=== PATIENT | female | born 1940 | race Caucasian/White ===

== ENCOUNTER 2017-04-10 19:19 | Emergency (ER) | payer OTHER, BC ==
--- NOTE | 2017-04-10 19:21 | PDOC ---
History of Present Illness - History of Present Illness Initial Comments: 04/10/17 19:34 The patient is a 76 year old female, with no significant past medical history, who presents to the ED for evaluation of a laceration sustained to her left thumb when she "picked up a knife wrong" while washing dishes this evening. The patient denies any other complaints. PAST MEDICAL HISTORY: no significant history PAST SURGICAL HISTORY: no significant history FAMILY HISTORY: no pertinent history SOCIAL HISTORY: Pt lives with family. MEDICATIONS: reviewed ALLERGIES: As per nursing notes Adult ROS General: No fevers or chills, no weakness, no weight loss HEENT: No change in vision. No sore throat,. No ear pain CardioVascular: No chest pain or shortness of breath Respiratory:No cough, or wheezing. Gastrointestinal: no nausea, vomiting, diarrhea or constipation, No rectal bleeding Genitourinary: No dysuria, hematuria, or frequency Musculoskeletal: No joint or muscle pain or swelling Neurologic: No headache, vertigo, dizziness or loss of consciousness Psychiatric: nor depression Skin: (+) left thumb laceration. No rashes or easy bruising Endocrine: no increased thirst or abnormal weight change Allergic: no skin or latex allergy All other systems reviewed and normal Physical Exam GENERAL: The patient is awake, alert, and fully oriented, in no acute distress. HEAD: Normal with no signs of trauma. EYES: Pupils equal, round and reactive to light, extraocular movements intact, sclera anicteric, conjunctiva clear. EXTREMITIES: Normal range of motion, no edema. NEUROLOGICAL: Normal speech, normal gait. PSYCH: Normal mood, normal affect. SKIN: (+) 2cm, superficial, linear laceration to the volar aspect of left 1st distal phalanx. No bony deformities of tenderness. Warm, Dry, normal turgor, no rashes <Lalita De La Vega - Last Filed: 04/10/17 19:41> - General History Source: Patient Exam Limitations: No Limitations - History of Present Illness Initial Comments: Procedure note: Laceration repair Dermabond Laceration left thumb was cleaned and closed with Dermabond patient tolerated well Sterile dry Band-Aid was applied patient discharged home 04/10/17 19:44 A portion of this note was documented by scribe services under my direction. I have reviewed the details of the note, within reason, and agree with the documentation. The case summary and management plan written by me. Assessment and plan: This is a 76-year-old female who sustained a superficial laceration of her left thumb while doing dishes. Patient cut herself on a sharp knife that was in the sink. Patient otherwise is healthy. Patient denies being on any blood thinners including [id number] medications. Patient laceration had pretty much stopped bleeding at a time she got here I cleaned it and close it with Dermabond and patient was discharged home. Patient does have a primary care doctor she can follow-up with. <Francisco Javier Germain I - Last Filed: 04/10/17 19:46> - General Stated Complaint: LEFT THUMB LACERATION Time Seen by Provider: 04/10/17 19:21 Past History <Lalita De La Vega - Last Filed: 04/10/17 19:41> - Past Medical History Anemia: No Asthma: No Cancer: Yes (RIGHT BREAST) Cardiac Disorders: No CVA: No COPD: No CHF: No Dementia: No Diabetes: No GI Disorders: No Disorders: No HTN: No Hypercholesterolemia: No Liver Disease: No Seizures: No Thyroid Disease: No - Surgical History Abdominal Surgery: No Appendectomy: No Cardiac Surgery: No Cholecystectomy: No Lung Surgery: No Neurologic Surgery: No Orthopedic Surgery: No - Suicide/Smoking/Psychosocial Hx Smoking Status: Yes Smoking History: Former smoker Have you smoked in the past 12 months: No Number of Cigarettes Smoked Daily: 0 If you are a former smoker, when did you quit?: OVER 25 YRS AGO Hx Alcohol Use: Yes (FEW PER WEEK) Substance Use Type: Alcohol Hx Substance Use Treatment: No <Francisco Javier Germain I - Last Filed: 04/10/17 19:46> - Past Medical History Allergies/Adverse Reactions: Allergies Allergy/AdvReac Type Severity Reaction Status Date / Time Antihistamines - Alkylamine Allergy Severe Hives Verified 04/10/17 19:21 bee pollen [Bee Pollen] Allergy Severe Difficulty Verified 04/10/17 19:21 Breathing Home Medications: Ambulatory Orders No Home Medications 0 dose .ROUTE UTDICT 06/28/13 *Physical Exam - Vital Signs Last Vital Signs Temp Pulse Resp BP Pulse Ox 97.8 F 88 16 124/51 100 04/10/17 19:20 04/10/17 19:20 04/10/17 19:20 04/10/17 19:20 04/10/17 19:20 <Lalita De La Vega - Last Filed: 04/10/17 19:41> Procedures - Laceration/Wound Repair Left Volar Hand 1st digit Wound Length: to 2.5 cm (2.0cm) Wound Explored: clean, no foreign body present Wound's Depth, Shape: superficial Wound Repaired With: Dermabond <Lalita De La Vega - Last Filed: 04/10/17 19:41> *DC/Admit/Observation/Transfer - Attestations Scribe Attestion: 04/10/17 19:38 Documentation prepared by Lalita De La Vega, acting as center medical director for Francisco Javier Germain MD <Lalita De La Vega - Last Filed: 04/10/17 19:41> - Discharge Dispostion Admit: No <Francisco Javier Germain I - Last Filed: 04/10/17 19:46> Diagnosis at time of Disposition: Laceration of left thumb Qualifiers: Encounter type: initial encounter Damage to nail status: without damage Foreign body presence: without foreign body Qualified Code(s): S61.012A - Laceration without foreign body of left thumb without damage to nail, initial encounter - Discharge Dispostion Disposition: HOME Condition at time of disposition: Good - Patient Instructions Printed Discharge Instructions: DI for Laceration Repair With Dermabond Additional Instructions: Keep the thumb clean and dry do not get it wet for the next 72 hours you can wear a dry Band-Aid over the glue to protect it and keep it clean. Read over and follow the Dermabond instructions most importantly is keeping it dry for 72 hours and not putting any lotions creams or ointments or petroleum based products on the glue as it will cause the glue to break down and come off earlier Return to the emergency department immediately with ANY new, persistent or worsening symptoms. Continue any medications as previously prescribed by your physician. You should follow up with your primary doctor as soon as possible regarding today's emergency department visit. . Please make sure your doctor reviews the results of your emergency evaluation. Thank you for coming to the Emergency Department today for your care. It was a pleasure to see you today. Please note that your evaluation is INCOMPLETE until you follow-up with your doctor.
[2017-04-10 19:26] VITALS: BP 124/51; PULSE 88; TEMP 97.8
[2017-04-10] MEDS ORDERED: DIPHTH,PERTUSS(ACELL),TET 0.5 ML DISP.SYRIN IM ONE (19:41)
== END 2017-04-10 19:52 | disposition home or self-care (01) ==
LOC: FER 19:19
PROC: 0HQGXZZ Repair Left Hand Skin, External Approach (ICD-10-PCS; principal; 2017-04-10)
PROC: 3E0234Z Introduction of Serum, Toxoid and Vaccine into Muscle, Percutaneous Approach (ICD-10-PCS; 2017-04-10)
DX: S61.012A Laceration without foreign body of left thumb without damage to nail, initial encounter (principal); W26.0XXA Contact with knife, initial encounter; Y93.G1 Activity, food preparation and clean up; Y92.000 Kitchen of unspecified non-institutional (private) residence as the place of occurrence of the external cause
CPT/HCPCS: 12001-25; 90471; 90715; 99282-25

== ENCOUNTER 2019-11-06 09:03 | Day surgery (SDC) | payer OTHER, BC ==
[2019-11-06] MEDS ORDERED: CYCLOPENTOLATE HCL 1% OPHTH SOLN 2 ML BOTTLE ONE (09:06)
[2019-11-06] MEDS ORDERED: TROPICAMIDE 1% OPHTH SOLN 15 ML BOTTLE ONE (09:06)
[2019-11-06] MEDS ORDERED: OFLOXACIN 0.3% OPHTHALMIC SOLUTION 5 ML BOTTLE ONE (09:06)
[2019-11-06] MEDS ORDERED: PHENYLEPHRINE 2.5% OPHTH SOLN 15 ML BOTTLE ONE (09:06)
[2019-11-06] MEDS ORDERED: KETOROLAC TROMETHAMINE 0.5% EYE DROP 1 DROP DROPS ONE (09:06)
[2019-11-06] MEDS: TROPICAMIDE 1% OPHTH SOLN 15 ML BOTTLE OS SCH ×5 (09:35→09:55)
[2019-11-06] MEDS: KETOROLAC TROMETHAMINE 0.5% EYE DROP 1 DROP DROPS OS SCH ×5 (09:35→09:55)
[2019-11-06] MEDS: OFLOXACIN 0.3% OPHTHALMIC SOLUTION 5 ML BOTTLE OS SCH ×5 (09:35→09:55)
[2019-11-06] MEDS: PHENYLEPHRINE 2.5% OPHTH SOLN 15 ML BOTTLE OS SCH ×5 (09:35→09:55)
[2019-11-06] MEDS: CYCLOPENTOLATE HCL 1% OPHTH SOLN 2 ML BOTTLE OS SCH ×5 (09:35→09:55)
[2019-11-06] MEDS ORDERED: MIDAZOLAM HCL 2 MG/2 ML SINGLE DOSE VIAL ONE (10:14)
[2019-11-06] MEDS ORDERED: BACITRACIN/POLYMYXIN OPH OINT 3.5 GM TUBE ONE (10:16)
[2019-11-06] MEDS ORDERED: TETRACAINE 0.5% OPHTH SOLN 2 ML BOTTLE ONE (10:16)
[2019-11-06] MEDS ORDERED: POVIDONE-IODINE 5% OPHTHALMIC PREP 30 ML SOLUTION ONE (10:16)
[2019-11-06] MEDS ORDERED: EPI-SHUGARCAINE (EPINEPHRINE 0.025% & LIDOCAINE-PF 0.75%) 4ML ONE (10:16)
[2019-11-06] MEDS ORDERED: BETAXOLOL HCL 0.25% OPHTHALMIC 10 ML DROPSBTL ONE (10:16)
[2019-11-06] MEDS ORDERED: NEO/POLYMYX B SULF/DEXAMETH OPHTHALMIC 5ML BOTTLE ONE (10:17)
[2019-11-06] MEDS ORDERED: ACETAMINOPHEN 325 MG TABLET (FP) PO PRN (11:31)
[2019-11-06 12:14] VITALS: TEMP 98.2
[2019-11-06 12:17] VITALS: BP 100/48; PULSE 80
--- NOTE | 2019-11-06 19:14 | OP ---
DATE OF OPERATION: 11/06/2019 PREOPERATIVE DIAGNOSIS: Cataract, left eye. POSTOPERATIVE DIAGNOSIS: Cataract, left eye. PROCEDURE: Cataract extraction via phacoemulsification with insertion of posterior chamber lens implant, left eye. SURGEON: Ham De Los Santos MD. ASSISTANT PROFESSOR OF PSYCHOLOGY: Natali Ugalde MD. ANESTHESIA: Topical with sedation. ESTIMATED BLOOD LOSS: Less than 1 mL. COMPLICATIONS: None. SPECIMENS: None. PROCEDURE: The patient is identified in the holding area. After all risks, benefits, and alternatives were explained to the patient, informed consent was obtained. The left eye was marked with a marking pen. The patient then entered the operating room on an eye stretcher. After formal timeout was performed, topical tetracaine eyedrops were instilled onto the left eye. The patient was then instructed to sit up and look straight ahead and the cardinal axis of astigmatism were marked onto the eye using a Toric marker, and a Toric marking pen. The patient was then instructed to lay back down, and the left eye was prepped and draped in the usual sterile fashion. Eyelid speculum was placed beneath the eyelids of the left eye. Then the axis of astigmatism was marked onto the left cornea. This was performed using a Toric dial and a Toric marker. It was noted that the axis of astigmatism was located at about 175 degrees. Then infratemporal paracentesis incision was created using 15-degree blade. Topical preservative-free epinephrine and preservative-free lidocaine was injected to the anterior chamber, and viscoelastic was then injected into the anterior chamber. A 2.4-mm keratome blade was then used to make a supratemporal incision. A 360-degree continuous curvilinear capsulorrhexis was then created using bent cystotome and Utrata forceps. Hydrodissection was performed using balanced saline solution on the cannula. Phacoemulsification was then introduced, disassembled and removed the nucleus in its entirety. Irrigation/aspiration was then used to remove any remaining cortical material from the eye. The capsular bag was reformed using viscoelastic. An Arash model [id number] with a power of 23.5 diopters, serial number [id number] was inspected and found to be defect free and injected into the capsular bag. Irrigation/aspiration was then used to remove any remaining viscoelastic from the eye including posterior . The intraocular lens was rotated so that the axis of astigmatism on the optic matched the axis of astigmatism on the cornea, which was noted to be 175 degrees. All wounds were hydrated with balanced saline solution and noted to be watertight. There was a red reflex present. The anterior chamber was deep. The eye had adequate pressure. The lens was perfectly centered in the capsular bag with the axis of astigmatism again at 750 degrees. Topical antibiotic eyedrops and antibiotic ointment was then administered to the left eye. The eyelid speculum was then removed from the left eye. The left eye was shielded. The patient tolerated the procedure well and left the operating room in stable condition to follow up in the eye clinic tomorrow morning at 10 o'clock. HAM DE LOS SANTOS M.D. [id number]
== END 2019-11-06 12:15 | disposition home or self-care (01) ==
LOC: FASU 09:03
PROVIDERS: ATTEND Ophthalmology
PROC: 08RK3JZ Replacement of Left Lens with Synthetic Substitute, Percutaneous Approach (ICD-10-PCS; principal; 2019-11-06 10:50)
DX: H26.9 Unspecified cataract (principal)